=== PATIENT | female | born 1995 | race Caucasian/White ===

== ENCOUNTER 2018-11-15 15:03 | Emergency (ER) | payer OTHER ==
[~2018-11-15] VITALS: Ht 162.6 cm; Wt 50.9 kg
[2018-11-15 15:25] VITALS: BP 132/76
--- NOTE | 2018-11-15 15:54 | NUR ---
PT AMBULATED TO ER BED 04
--- NOTE | 2018-11-15 16:00 | NUR ---
23 YO F BIB SELF W/ C/O FACIAL RASH. PT STATES ON TUESDAY 1 GROWTH APPEARED ON RIGHT EYE AND SHE BELIEVED IT WAS A STY. ON TUESDAY MORNING, SHE AWOKE W/ MULTIPLE PUS-FILLED LESIONS UNDER RIGHT EYE. PT DENIES N/V/D/FEVER. PT DENIES PAIN, BUT STATES THAT THE RASH IS IRRITATING WHEN IT IS DRY, BUT OINTMENT ALLEVIATES. WENT TO URGENT CARE AND TOLD TO COME TO ER. PT IS AAOX4, VSS, BED DOWN, BEDRAIL UP X 1, ER MD AWARE AND NOTIFIED OF PT STATUS. HX DENIES RX DENIES
--- NOTE | 2018-11-15 16:15 | NUR ---
Patient being evaluated by physician at bedside.
[2018-11-15 16:40] VITALS: BP 130/73
--- NOTE | 2018-11-15 16:40 | NUR ---
Patient discharged with v/s stable. Written and verbal after care instructions given and explained. Patient alert, oriented and verbalized understanding of instructions. Ambulatory with steady gait. All questions addressed prior to discharge. ID band removed. Patient advised to follow up with PMD. Rx of bactrium and keflex given. Patient educated on indication of medication including possible reaction and side effects. Opportunity to ask questions provided and answered.
== END 2018-11-15 16:40 | disposition home or self-care (01) ==
LOC: MED 15:03
DX: H00.032 Abscess of right lower eyelid (principal)
CPT/HCPCS: 99283

== ENCOUNTER 2023-02-13 02:07 | Emergency (ER) | payer OTHER ==
[~2023-02-13] VITALS: Ht 154.9 cm; Wt 58.1 kg
--- NOTE | 2023-02-13 02:20 | NUR ---
PT TO BED #5
[2023-02-13 02:22] VITALS: BP 114/77
--- NOTE | 2023-02-13 02:25 | NUR ---
DR. SERRANO AT BEDSIDE
[2023-02-13] MEDS ORDERED: IBUP-2213 PO (02:46)
[2023-02-13] MEDS: KETOROLAC 60 MG/2 ML VIAL IM ONE (02:57)
[2023-02-13 03:25] VITALS: BP 114/77
--- NOTE | 2023-02-13 03:25 | NUR ---
Patient discharged with v/s stable. Written and verbal after care instructions given and explained. Patient verbalized understanding. Ambulatory with steady gait. All questions addressed prior to discharge. Advised to follow up with PMD.
[2023-02-14] MEDS ORDERED: ACETAMINOPHEN 325 MG TAB ONE (18:52)
== END 2023-02-13 03:25 | disposition home or self-care (01) ==
LOC: MED 02:07
DX: N39.0 Urinary tract infection, site not specified (principal); F17.200 Nicotine dependence, unspecified, uncomplicated
CPT/HCPCS: 81025; 96372; 99283; J1885

== ENCOUNTER 2023-02-14 12:44 | Inpatient (IN) | payer OTHER ==
[~2023-02-14] VITALS: Ht 154.9 cm; Wt 58.1 kg
[~2023-02-14 12:44] MED LIST: IBUP-2213 PO
[2023-02-14 13:05] VITALS: BP 95/54
[2023-02-14 13:27] LABS: BILIRUBIN,URINE NEGATIVE (NEGATIVE); BLOOD, URINE 1+ (NEGATIVE); LEUKOCYTE ESTERASE ,URINE 1+ (NEGATIVE); NITRITE, URINE POSITIVE (NEGATIVE); PH,URINE 5.5 (5.0-9.0); UGLUCOSE TRACE (NEGATIVE)
[2023-02-14 13:54] LABS: RBC,URINE 11-20 (MOD) /HPF (0-5)
[2023-02-14 13:55] LABS: COLOR,URINE AMBER (YELLOW)
[2023-02-14 13:56] LABS: APPEARANCE,URINE TURBID (CLEAR)
[2023-02-14] MEDS ORDERED: NACL 0.9% 2,000 ML IV SCH (14:45)
[2023-02-14 15:02] LABS: BASOPHILS % (AUTO) 0.2 % (0.0-2.0); HEMOGLOBIN 13.2 g/dL (12.0-16.0); LYMPHOCYTES # (AUTO) 0.8 K/uL (2.5-16.5); LYMPHOCYTES % (AUTO) 7.5 % (20.5-51.1); MEAN CORPUSCULAR HEMOGLOBIN 30 pg (27-31); MEAN CORPUSCULAR HGB CONC 33 g/dL (33-37); MEAN CORPUSCULAR VOLUME 91.4 fL (80-94); MONOCYTES # (AUTO) 0.9 K/uL (0.8-1.0); MONOCYTES % (AUTO) 8.4 % (1.7-9.3); NEUTROPHILS # (AUTO) 9.4 K/uL (1.8-7.7); NEUTROPHILS % (AUTO) 83.9 % (42.2-75.2); PLATELET COUNT (AUTO) 245 K/uL (140-450); RED BLOOD CELL COUNT(AUTO) 4.38 MIL/uL (4.20-5.40); RED CELL DISTRIBUTION WIDTH 13.4 % (11.6-13.7); WHITE BLOOD COUNT (AUTO) 11.2 K/uL (4.8-10.8)
--- NOTE | 2023-02-14 15:16 | NUR ---
PT AMBULATED TO ER BED 12
--- NOTE | 2023-02-14 15:22 | NUR ---
27 Y/O FEMALE FLANK PAIN, DYSURIA, FEVERS/CHILLS AND HEADACHE. PT WAS SEEN HERE YESTERDAY FOR UTI AND STATES ITS WORSENING. +BODY ACHES, FLANK PAIN WITH FEVER/CHILLS STARTED LAST NIGHT. PT DENIES URINARY FREQUENCY/URGENCY. PT DENIES RECURRENT UTIS. PT REPORTS TACHYCARDIAC/TACHYPNEIC. DENIES N/V/SOB/CP. PT A/O X4 WITH EVEN AND UNLABORED. PT IN GOWN ON CARDIAC/O2 MONITOR. PMH:DENIES NKDA
[2023-02-14 15:23] LABS: ALBUMIN 3.7 g/dL (3.4-5.0); ANION GAP 14.5 (8-16); CARBON DIOXIDE 26.6 mmol/L (21-32); CREATININE 1.1 mg/dL (0.6-1.3); POTASSIUM 5.1 mmol/L (3.5-5.1); TOTAL BILIRUBIN 0.3 mg/dL (0.0-1.0)
[2023-02-14] MEDS ORDERED: ACETAMINOPHEN 325 MG TAB PO ONE (15:25)
[2023-02-14] MEDS ORDERED: cefTRIAXone 1,000 MG VIAL ONE (15:28)
--- NOTE | 2023-02-14 17:01 | NUR ---
PT REPORTS FEELING BETTER. PT REMAINS ON CARDIAC/O2 MONITOR. HR AND TEMP HAS IMPROVED. PT PROVIDED WITH SNACKS. CALL LIGHT WITHIN REACH. ALL NEEDS MET.
[2023-02-14] MEDS ORDERED: ONDANSETRON 4 MG/2 ML VIAL IVP PRN (17:25)
[2023-02-14] MEDS ORDERED: ACETAMINOPHEN 325 MG TAB PO PRN (17:25)
[2023-02-14] MEDS ORDERED: LORazepam 2 MG/ML VIAL IVP PRN (17:25)
[2023-02-14] MEDS: NACL 0.9% 1,000 ML IV SCH (18:40)
--- NOTE | 2023-02-14 19:24 | NUR ---
REPORT GIVEN TO ARIEL WILLIS, TRANSFER OF CARE AT THIS TIME.
--- NOTE | 2023-02-14 20:22 | NUR ---
pt education was performed. Pt acknowledge the diagnosis why she is being admitted.
--- NOTE | 2023-02-14 22:40 | NUR ---
pt had episode of vomitting. Nurse getting the zofran prn
--- NOTE | 2023-02-14 23:00 | NUR ---
pt had food delived from family member.
[2023-02-15] MEDS: NACL 0.9% 1,000 ML IV SCH ×4 (02:00→20:05)
--- NOTE | 2023-02-15 04:00 | NUR ---
pt notified the nurse that she maight have fever. Oral temp was performed and it was 99.3. and she said she has pain as well
[2023-02-15] MEDS: MORPHINE SULFATE 2 MG/ML SYR IVP PRN ×2 (04:19→09:29)
--- NOTE | 2023-02-15 05:00 | NUR ---
Syd regalado in ED - 02/15/23 at 0709 by [id number] pt is voided 100 ml and pt care was perform
--- NOTE | 2023-02-15 07:03 | NUR ---
receive from the maintenance mechanic 2nd shift rn in rm 116 [id number] confuse with admitting diagnosis of abdominal bypass . will continue to monitor .
--- NOTE | 2023-02-15 08:00 | NUR ---
Patient will be admitted to care of dr wilson. Admited to tele. Will go to room 104b. Belongings list completed. Report to delores hernández.
--- NOTE | 2023-02-15 08:38 | NUR ---
admitted the patient from the emergency room [facility] ambulatory, on room air with admitting diagnosis of urinary tract infection . will continue with antibiotics , pain management . will continue to monitor
--- NOTE | 2023-02-15 09:12 | NUR ---
PATIENT HAS BEEN SCREENED AND CATEGORIZED LOW NUTRITION RISK. PATIENT WILL BE SEEN WITHIN 7 DAYS OF ADMISSION. 02/21/23 REVIEWED BY QUENTIN EASTMAN RD
[2023-02-15 12:00] VITALS: BP 128/78
[2023-02-15 16:00] VITALS: BP 135/90
[2023-02-15] MEDS: KETOROLAC 30 MG/ML VIAL IVP PRN ×2 (16:38→23:20)
--- NOTE | 2023-02-15 18:59 | NUR ---
will endorse to glost kiln placer rn for continuity of care . for hydration , antibiotic therapy
--- NOTE | 2023-02-15 19:10 | NUR ---
RECEIVED PATIENT LYING ON THE BED, PATIENT IS AWAKE, ALERT AND ORIENTED, DENIES PAIN UPON ASSESSMENT, NO SIGNS OF DISTRESS NOTED. FAMILY AT BEDSIDE. PATIENT HAS LEFT AC G22 IV ACCESS SITE. LINE PATENT AND INTACT. CALL LIGHT WITHIN REACH.
[2023-02-15 20:00] VITALS: BP 102/65
--- NOTE | 2023-02-15 21:22 | NUR ---
CHECKED ON PATIENT, PATIENT IS ON HER PHONE, NO C/O PAIN AT THIS TIME. CALL LIGHT WITHIN REACH.
--- NOTE | 2023-02-15 23:20 | NUR ---
PATIENT C/O 6/10 PAIN ON LOWER BACK AND HEADACHE, GIVEN PRN PAIN MEDICATION. WILL CONTINUE TO MONITOR THE PATIENT.
[2023-02-16] VITALS: BP 111/63
--- NOTE | 2023-02-16 00:20 | NUR ---
PATIENT IS ASLEEP, BREATHING EVEN AND NON LABORED ON ROOM AIR, NO SIGNS OF PAIN NOTED. CALL LIGHT WITHIN REACH.
[2023-02-16] MEDS: NACL 0.9% 1,000 ML IV SCH ×2 (02:29→09:44)
[2023-02-16 04:00] VITALS: BP 92/61
--- NOTE | 2023-02-16 04:10 | NUR ---
VITALS TAKEN T 97.0, P 77, BP 92/61, RESP 16, O2 SATS 98% ON ROOM AIR. NO C/O PAIN AT THIS TIME. CALL LIGHT WITHIN REACH.
--- NOTE | 2023-02-16 07:04 | NUR ---
receive the patient from the shift production associate rn in rm [id number] aox4 with admitting diagnosis of pyelonephritis . will continue to monitor .
--- NOTE | 2023-02-16 07:26 | NUR ---
ENDORSED PATIENT TO DAY NURSE FOR CONTINUITY OF CARE. PATIENT IN STABLE CONDITION.
[2023-02-16] MEDS: KETOROLAC 30 MG/ML VIAL IVP PRN (12:49)
[2023-02-16] MEDS ORDERED: CIPR500T4 PO (13:08)
[2023-02-16 13:31] VITALS: BP 130/72
--- NOTE | 2023-02-16 14:15 | NUR ---
DC PLANNING ADMITTED A 27 YEAR OLD FEMALE PATIENT FOR MILD DYSURIA .TREATED WITH ROCEPHIN IVPB.URINE CULTURE (+) FOR E.COLI. COMPLAINING OF RIGHT EYE REDNESS POSSIBLY STYE.GOING HOME WITH CIPRO AND PAIN MEDS FOR HER RIGHT EYE.
--- NOTE | 2023-02-16 14:15 | NUR ---
made discharge patient teaching . discontinue intravenous line , cardiac heart monitor . also remove the identification band . patient in a stable condition . no complain of pain at this time . no sign and symptoms of respiratory distress . brought the patient to the lobby thru a wheelchair to a waiting private car with the mother
== END 2023-02-16 13:15 | disposition home or self-care (01) | DRG 463 ==
LOC: MED 12:44 → MTU 17:25
PROVIDERS: ADMIT Hospitalist; ATTEND Hospitalist
DX: N10 Acute pyelonephritis (principal); E87.20 Acidosis, unspecified; B96.20 Unspecified Escherichia coli [E. coli] as the cause of diseases classified elsewhere; D72.829 Elevated white blood cell count, unspecified; Z20.822 Contact with and (suspected) exposure to COVID-19
CPT/HCPCS: 36415; 76770; 80053; 81001; 83605; 83690; 84484; 85025; 87040; 87081; 87086; 96365; 96375; 99291; J0696; J1885; J2270; J2405; J7060; Q0092